=== PATIENT | female | born 1955 | race Caucasian/White ===

== ENCOUNTER 2020-10-26 10:51 | Emergency (ER) | payer MEDICARE, SELFPAY ==
[2020-10-26 11:00] VITALS: BP 112/80; PULSE 77; RESP 20; TEMP 36.4; O2SAT 97
--- NOTE | 2020-10-26 11:13 | ED.URI ---
HPI - URI/Sore Throat General Chief Complaint: Upper Respiratory Infection Stated Complaint: tightness in chest Time Seen by Provider: 10/26/20 11:15 Source: patient Mode of arrival: ambulatory Limitations: no limitations History of Present Illness HPI Narrative: 65-year-old woman with history of asthma and COPD comes in today complaining of chest congestion, cough, sore throat and rhinorrhea. She states her symptoms started yesterday. Her has had fever and similar symptoms for 3 days. She denies vomiting, diarrhea, sputum production, fever another sick contacts. she has a history of asthma and COPD for which she takes inhalers as needed. MD elicited complaint: cough, sore throat and nasal congestion Pertinent past history: COPD and asthma Onset (ago): day(s) (1) Consistency: constant and progressively worsening Severity: mild Able to tolerate fluids by mouth: Yes Exacerbating factors: deep breaths Relieving factors: nothing Context: sick contacts Associated symptoms: myalgias, nasal congestion, sore throat and cough Related Data Allergies Allergy/AdvReac Type Severity Reaction Status Date / Time No Known Allergies Allergy Verified 10/26/20 11:48 Review of Systems Constitutional: Constitutional: Denies chills and Denies fever(s) ENT: Reports nasal congestion and Reports sore throat Cardiovascular: Cardiovascular: Denies chest pain and Denies radiating jaw, neck or arm pain Respiratory: Respiratory: Reports cough, Denies dyspnea and Denies wheezing Gastrointestinal: Gastrointestinal: Denies abdominal pain, Denies diarrhea, Denies nausea and Denies vomiting Musculoskeletal: Musculoskeletal: Denies arthralgias, Denies joint swelling and Denies muscle cramps Integumentary/Breasts: Skin/Breast: Denies erythema and Denies rash Neurologic: Denies vertigo, Denies dizziness, Denies syncope and Denies weakness Hematologic/Lymphatic: Hematologic/Lymphatic: Denies easy bleeding and Denies easy bruising Allergic/Immunologic: Allergic/Immunologic: Denies lip swelling and Denies throat swelling PMFSH Past Medical History Medical History (Updated 10/26/20 @ 11:48 by Darrel Lee MD) Asthma COPD (chronic obstructive pulmonary disease) Hyperlipidemia Surgical History Surgical History (Updated 10/26/20 @ 11:27 by Darrel Lee MD) H/O shoulder surgery History of carpal tunnel surgery History of partial hysterectomy Social History Social History (Updated 10/26/20 @ 11:28 by Darrel Lee MD) Smoking status: Former smoker Substance use: never Living arrangements: with family Exam Const: General: healthy appearing, no acute distress and alert Orientation/consciousness: patient oriented x3 Limitations: no limitations HENMT: Head: normal to inspection Face and sinus: normal facial exam Mouth: Yes moist mucous membranes Throat: posterior oropharynx normal Eyes: Conjunctivae: conjunctivae normal Pupils: Equal, round and reactive pupils present EOM: EOMs intact bilaterally Resp: Effort & Inspection: normal respiratory effort and not labored Auscultation: clear to auscultation bilaterally, no rales, no rhonchi and no wheezes Cardio: Rate: regular rate Rhythm: regular rhythm Heart sounds: no murmurs Skin: General skin exam: normal color, no jaundice and no pallor Rashes: no rashes Neuro: General: patient oriented x3, moves all extremities, no focal motor deficits and CN's II-XI intact bilaterally Speech: normal speech Gait exam (Neuro): Normal gait present Extrem: General: normal to inspection and no clubbing, cyanosis or edema Psych: Appearance: grossly normal and well kempt Mental Status: mental status grossly normal Affect: normal affect Attitude: cooperative Thought content: Yes Normal thought content present Course Vital Signs Vital signs: Vital Signs Temperature 36.4 C 10/26/20 11:00 Pulse Rate 77 10/26/20 11:00 Respiratory Rate 20 10/26/20 11:00 Bl
[2020-10-26 11:37] LABS: Influenza Control Valid (Valid); SARS-CoV-2 Ag Negative (Negative)
[2020-10-26 11:49] VITALS: BP 117/75; PULSE 74; RESP 20; TEMP 36.4; O2SAT 97
== END 2020-10-26 11:52 | disposition home or self-care (01) ==
PROVIDERS: Emergency Provider Emergency Medicine; PCP Family Medicine
DX: B34.9 Viral infection, unspecified (principal)
CPT/HCPCS: 87426; 87804; 99283; C9803

== ENCOUNTER 2022-08-12 11:58 | Outpatient (CLI) | payer MEDICARE, SELFPAY ==
--- NOTE | ~2022-08-12 | US_ITS ---
US arterial ankle brachial ind INDICATION: Claudication. TECHNIQUE: Segmental pressures and plethysmographic and Doppler waveforms of the brachial and lower e xtremity arteries were obtained. COMPARISON: None. FINDINGS: Right and left brachial artery pressures of 123 mm Hg and 131 mm Hg, respectively, are concordant (no rmal difference <= 30 mmHg). The right ankle-brachial index (JAX) is 1 (normal >= 0.9-1.0). The right great toe-brachial index (TB I) is 0.69 (normal >= 0.60). The left JAX is 1.01. The left TBI is 0.49. IMPRESSION: 1. Mildly decreased left toe brachial index measuring 0.49, consistent with mild peripheral arterial disease. 2: Normal bilateral ankle-brachial indices. Reviewed, dictated and finalized at location [] IMPRESSION: 1. Mildly decreased left toe brachial index measuring 0.49, consistent with mil d peripheral arterial disease. 2: Normal bilateral ankle-brachial indices.
--- NOTE | ~2022-08-12 | DEXA_ITS ---
Bone Density Report Name: BRENDON SCHAFER Age: 67 Sex: Female Ethnicity: White Date of : 1955 Indication: hyperparathyroidism; parental hip fracture; height loss; asthma or emphysema; hysterectomy; Referring Provider: Lizett, Margarito Study: Bone densitometry was performed. Exam Date: August 12, 2022 Accession number: [id number] Bone Density: Region BMD T-score Z-score Classification AP Spine(L1-L4) 0.930 -1.1 0.8 Osteopenia Femoral Neck (Left) 0.715 -1.2 0.4 Osteopenia Total Hip (Left) 0.817 -1.0 0.3 Normal Femoral Neck (Right) 0.704 -1.3 0.3 Osteopenia Total Hip (Right) 0.809 -1.1 0.2 Osteopenia Femoral Neck Mean 0.710 -1.3 0.4 Osteopenia Total Hip Mean 0.813 -1.1 0.3 Osteopenia World Health Organization criteria for BMD impression classify patients as: Normal (T-score at or above -1.0), Osteopenia (T-score between -1.0 and -2.5), or Osteoporosis (T-score at or below -2.5). 10-year Fracture Risk(1): Major Osteoporotic Fracture 15% Hip Fracture 1.1% Reported Risk Factors: [place] (), Neck BMD=0.704, BMI=33.7, parental fracture (1) FRAX(R) Version 3.08. Fracture probability calculated for an untreated patient. Fracture probability may be lower if the patient has received treatment. Clinical Information Provided by Patient: Parent has had a hip fracture Has used the following medications: Calcium Has the following medical conditions: Asthma or Emphysema, Hyperparathyroidism, Hysterectomy Patient maximum height was 68 Menopause Age: 50 No regular weight bearing exercise Does not regularly consume dairy products Drinks caffeinated beverages Onset of menses at age 11 Number of children 2 Impression: The patient has low bone mass, based on the Right Femoral Neck T-score. The patient has risk factors, including: parental hip fracture. Discussion: BONE DENSITY IS LOW AT ONE OR MORE SKELETAL SITES. This patient's lowest T-score is low at one or more skeletal sites. It meets the World Health Organization's (WHO) criteria for ?low bone mass? (T-score between -1.0 and -2.5). The patient's 10-year risk of fracture as calculated by FRAX is less than the threshold where pharmacological therapy is recommended by the National Osteoporosis Foundation (NOF). However, all treatment decisions require clinical judgment and consideration of individual patient factors, including patient preferences, comorbidities, previous drug use, risk factors not captured in the FRAX model (e.g., frailty, falls, vitamin D deficiency, increased bone turnover, interval significant decline in bone density) and possible under or overestimation of fracture risk by FRAX. The patient should follow a healthful lifestyle (good nutrition with adequate calcium and vitamin D, and approp
== END 2022-08-12 11:59 | disposition home or self-care (01) ==
LOC: CHSIMG 12:00
PROVIDERS: PCP Family Medicine; Visit Provider Physician Assistant
DX: Z78.0 Asymptomatic menopausal state (principal); I73.9 Peripheral vascular disease, unspecified; M85.89 Other specified disorders of bone density and structure, multiple sites
CPT/HCPCS: 77080; 93922

== ENCOUNTER 2024-06-21 16:28 | Outpatient (RCR) | payer MEDICARE, SELFPAY ==
--- NOTE | 2024-06-21 17:18 | OPREHPOC ---
Outpatient Therapy Plan of Care This is a Multidisciplinary Plan of Care that may contain components documented by all disciplines (PT, OT, and ST.) PT Problem 1 PT Problem #1 Knowledge Deficit PT Goal 1 Goal / Goal Update independent and compliant with HEP Target Visit 6 PT Problem 2 PT Problem #2 Pain PT Goal 1 Goal / Goal Update patient to report no more than 4/10 pain at worst in the lower back in the last week Target Visit 12 PT Problem 3 PT Problem #3 Impaired Range of Motion PT Goal 1 Goal / Goal Update 100% active lumbar rom without pain Target Visit 12 PT Problem 4 PT Problem #4 Impaired Strength PT Goal 1 Goal / Goal Update improve bilateral hip strength to 4/5 or better overall improve bilateral knee strength to 5/5 improve core strength to 3+/5 or better Target Visit 12 PT Problem 5 PT Problem #5 Impaired Functional Mobility PT Goal 1 Goal / Goal Update oswestry to display 30% or less functional deficits patient to ambulate 800ft or more in 6 minute walk test without increased pain patient to tolerate sitting and standing for 2 hours at home to complete home care and ADL activities patient to safely squat and lift small object from floor without increased lower back pain Target Visit 12
--- NOTE | 2024-06-21 17:19 | PTOPEVAL1 ---
Assessment and note entered by JT File, PT Evaluation Information Assessment Status Evaluation ICD-10 Condition Codes (PT) Pain in low back M54.50 Onset 06/09/24 Subjective Information patient reports no injury recently, but that she has had lower back issues off and on for years. she repots she typically has to be very careful about how she moves, but this time her pain is not letting up. she reports she has increased pain with lifting, bending, sit or stand for prolonged time. she reports she does not have any NTB in the legs. she reports the pain is located across the lower back. she reports she does get pain in the hips and legs when laying on her sides to fall asleep. she reports cleaning, sweeping, and mopping activities are especially painful. Reported Pain Level Pain Score 7: Self Report Assessment PT Clinical Summary mrs. salinas is a 68 yo woman who presents to skilled PT services for lower back pain. she presents today with an acute on chronic flare up of DDD. she displays decreased rom, poor core and LE strength, mm guarding, and decreased functional activity performance. continued skilled PT is indicated to improve her objective/functional deficits, decrease her pain levels, and return to her prior level functional activity performance/ quality of life. Plan of Care Interventions Electrical Stimulation,Gait Training,Hot Pack/Cold Pack,Manual Therapy,Neuro Re-education,Patient/ Caregiver Education,Therapeutic Activities, Therapeutic Exercise PT Services Indicated Yes Treatment Frequency and 3x weekly for 12 visits Duration These treatments will address the objective and functional deficits as defined above. The patient will be advanced safely and appropriately in order for the patient to progress towards his/her prior level of function. Additional exercises will be introduced and as well as a comprehensive home exercise program upon discharge, if needed, ?to ensure carryover of functional gains achieved in the clinic. This treatment plan has been reviewed and agreement upon by the patient.
--- NOTE | 2024-10-16 14:54 | PCPTNOTE ---
discharged due to time since last session
== END 2024-09-19 23:59 | disposition home or self-care (01) ==
LOC: CHSPT 16:28
PROVIDERS: Visit Provider Physician Assistant
DX: M54.50 Low back pain, unspecified (principal)
CPT/HCPCS: 97014; 97110; 97140; 97161; G0283